=== PATIENT | female | born 1995 | race American Indian/Alaskan Native ===

== ENCOUNTER 2017-09-13 19:33 | Emergency (ER) | payer MEDICAID, OTHER ==
[2017-09-13 19:39] VITALS: BP 137/77
--- NOTE | 2017-09-13 21:20 | EDM.PDOC ---
ED HPI GENERAL MEDICAL PROBLEM - General Chief Complaint: Lower Extremity Injury/Pain Stated Complaint: KNEE PAIN- FELL ON ICE [id number] Time Seen by Provider: 09/13/17 21:05 Source of Information: Reports: Patient History Limitations: Reports: No Limitations - History of Present Illness INITIAL COMMENTS - FREE TEXT/NARRATIVE: This 21 yo female patient reports to the ED with left knee pain. The patient reports she fell yesterday on her left knee. The patient reports increased swelling and stiffness over the past 24 hours. Onset Date: 09/12/17 Duration: Constant Location: Reports: Lower Extremity, Left (knee) Quality: Reports: Ache, Dull Severity: Moderate Improves with: Reports: Rest Worsens with: Reports: Movement Context: Reports: Trauma (GLF) Associated Symptoms: Reports: No Other Symptoms Left Knee Pain Score (Numeric/FACES): 7 - Related Data Allergies Allergy/AdvReac Type Severity Reaction Status Date / Time No Known Allergies Allergy Verified 09/13/17 19:39 Home Meds: Home Meds . [No Known Home Meds] 09/13/17 [History] Past Medical History - Past Health History Medical/Surgical History: Denies Medical/Surgical History Social & Family History - Tobacco Use Smoking Status *Q: Never Smoker Second Hand Smoke Exposure: No - Alcohol Use Days Per Week of Alcohol Use: 0 Number of Drinks Per Day: 7 Total Drinks Per Week: 0 - Recreational Drug Use Recreational Drug Use: No Review of Systems - Review of Systems Review Of Systems: ROS reveals no pertinent complaints other than HPI. ED EXAM, GENERAL - Physical Exam Exam: See Below Exam Limited By: No Limitations General Appearance: Alert, WD/WN, Moderate Distress Eye Exam: Bilateral Eye: EOMI, Normal Inspection, PERRL Ears: Normal External Exam, Normal Canal, Hearing Grossly Normal, Normal TMs Nose: Normal Inspection, Normal Mucosa, No Blood Throat/Mouth: Normal Inspection, Normal Lips, Normal Teeth, Normal Gums, Normal Oropharynx, Normal Voice, No Airway Compromise Head: Atraumatic, Normocephalic Neck: Normal Inspection, Supple, Non-Tender, Full Range of Motion Respiratory/Chest: No Respiratory Distress, Lungs Clear Cardiovascular: Normal Peripheral Pulses, Regular Rate, Rhythm (Female) Exam: Deferred Rectal (Female) Exam: Deferred Extremities: Other (left knee abrasion and contusions. Tendons demonstrate no excessive laxity (ACL, PCL, MCL or LCL)) Neurological: Alert, Oriented, CN II-XII Intact, Normal Cognition, Normal Gait, Normal Reflexes, No Motor/Sensory Deficits Psychiatric: Normal Affect, Normal Mood Skin Exam: Warm, Dry, Intact, No Rash, Wound/Incision (contusion and abrasion to left knee) Lymphatic: No Adenopathy Course - Vital Signs Last Recorded V/S: Last Vital Signs Temp 35.8 C 09/13/17 19:36 Pulse 76 09/13/17 19:36 Resp 18 09/13/17 19:36 BP 137/77 09/13/17 19:36 Pulse Ox 100 09/13/17 19:36 - Orders/Labs/Meds Orders: Active Orders 24 hr Category Date Time Status DME for Discharge [COMM] Urgent Oth 09/13/17 21:20 Ordered Labs: Laboratory Tests 09/13/17 Range/Units 19:45 Urine HCG, Qual Negative Departure - Departure Time of Disposition: 21:17 Disposition: Home, Self-Care 01 Condition: Fair Clinical Impression: Contusion of left knee Qualifiers: Encounter type: initial encounter Qualified Code(s): S80.02XA - Contusion of left knee, initial encounter - Discharge Information Instructions: Contusion, [id number] Forms: ED Department Discharge Care Plan Goals: The patient was advised of the examination and x-ray results during the visit. An DARRYL wrap was placed to help reduce the swelling in her left knee. The patient was encouraged to rest, ice and elevate her left knee over the next 24- 48 hours. If the patient has any additional symptoms or concerns, the patient should follow-up with her primary care facility or return to the emergency department. - My Orders Last 24 Hours: My Active Orders 09/13/17 21:20 DME for Discharge [COMM] Urgent - Assessment/Plan Last 24 Hours: My Active Orders 09/13/17 21:20 DME for Discharge [COMM] Urgent
== END 2017-09-13 21:21 | disposition home or self-care (01) ==
LOC: DL.ED 19:33
DX: S80.02XA Contusion of left knee, initial encounter (principal); W00.0XXA Fall on same level due to ice and snow, initial encounter
CPT/HCPCS: 73564-LT; 81025; 99283

== ENCOUNTER 2022-09-13 09:55 | Inpatient (IN) | payer OTHER ==
[~2022-09-13 09:55] MED LIST: Lactated Ringers 1,000 ML IV ONE
[2022-09-13] MEDS ORDERED: Sodium Chloride 0.9% 10 ML Syringe FLUSH PRN ×2 (10:00→21:27)
[2022-09-13] MEDS ORDERED: Misoprostol 400 MCG (4 X 100 MCG TAB) RECTAL PRN ×2 (10:00→21:27)
[2022-09-13] MEDS ORDERED: Ondansetron 4 MG/2 ML SDV IVPUSH PRN ×3 (10:00→19:54)
[2022-09-13] MEDS ORDERED: Tranexamic Acid 1,000 MG in Sodium Chloride 0.9% 100 ML IV PRN ×2 (10:00→21:27)
[2022-09-13] MEDS ORDERED: Promethazine 25 MG/ML SDV IM PRN ×2 (10:00→19:54)
[2022-09-13] MEDS ORDERED: Carboprost Tromethamine 250 MCG/1 ML Amp IM PRN ×2 (10:00→21:27)
[2022-09-13] MEDS ORDERED: Penicillin G Potassium 5 MILLUNITS in Sodium Chloride 0.9% 100 ML IV ONE (10:00)
[2022-09-13] MEDS ORDERED: Lidocaine 1% 30 ML SDV INJECT PRN (10:00)
[2022-09-13] MEDS ORDERED: Naloxone 2 MG/2 ML Syringe IVPUSH PRN ×2 (10:00→19:54)
[2022-09-13] MEDS ORDERED: Acetaminophen 325 MG Tab PO PRN ×3 (10:00→21:27)
[2022-09-13] MEDS ORDERED: Methylergonovine 0.2 MG/1 ML Amp IM PRN (10:00)
[2022-09-13] MEDS ORDERED: ePHEDrine 50 MG/ML SDV IVPUSH PRN ×2 (10:00→19:54)
[2022-09-13] MEDS ORDERED: Oxytocin/Normal Saline 30 UNIT/500 ML BAG IV SCH ×2 (10:00)
[2022-09-13] MEDS ORDERED: Lactated Ringers 500 ML IV SCH ×4 (10:00→20:00)
[2022-09-13] MEDS: Lactated Ringers 1,000 ML IV SCH ×2 (10:30→19:51)
[2022-09-13] MEDS: Penicillin G Potassium 3 MILLUNITS in Sodium Chloride 0.9% 100 ML IV SCH ×3 (14:10→22:00)
[2022-09-13] MEDS ORDERED: Sodium Chloride 0.9% 100 ML ONE (17:47)
[2022-09-13] MEDS ORDERED: Sodium Bicarbonate 4.2% 2.5 MEQ/5 ML SDV ONE ×2 (18:43→18:50)
[2022-09-13] MEDS ORDERED: Dexmedetomidine 200 MCG/2 ML SDV IT ONE (18:50)
[2022-09-13] MEDS ORDERED: Sodium Chloride 0.9% 20 ML SDV ONE (18:50)
[2022-09-13] MEDS ORDERED: EPINEPHrine 1 MG/ML SDV ONE (18:50)
[2022-09-13] MEDS ORDERED: Morphine PF 10 MG/10 ML SDV IT ONE (18:50)
[2022-09-13] MEDS ORDERED: Simethicone 80 MG Tab.Chew PO PRN (21:27)
[2022-09-13] MEDS ORDERED: Oxytocin 10 Units/1 ML SDV IM PRN (21:27)
[2022-09-13] MEDS ORDERED: Benzocaine/Menthol 20%-0.5% Spray 78 GM Cannister TOP PRN (21:27)
[2022-09-13] MEDS: Ibuprofen 800 MG Tab PO PRN (22:21)
[2022-09-13] MEDS: Docusate Sodium 100 MG Cap PO PRN (22:22)
[2022-09-14] MEDS: Prenatal Multivitamin with Calcium/Folic Acid/Iron Tab PO SCH (08:14)
[2022-09-14] MEDS: Docusate Sodium 100 MG Cap PO PRN (08:15)
[2022-09-14] MEDS: Ibuprofen 800 MG Tab PO PRN (08:17)
[2022-09-15] MEDS: Docusate Sodium 100 MG Cap PO PRN (08:03)
[2022-09-15] MEDS: Ibuprofen 800 MG Tab PO PRN (08:03)
[2022-09-15] MEDS: Prenatal Multivitamin with Calcium/Folic Acid/Iron Tab PO SCH (08:03)
[2022-09-15 09:14] VITALS: BP 133/99; PULSE 113
== END 2022-09-15 10:25 | disposition home or self-care (01) | DRG 807 ==
LOC: DL.OB 09:55 → OBSVTOIN 21:13
PROVIDERS: ADMIT Family Medicine; ATTEND Family Medicine
PROC: 10E0XZZ Delivery of Products of Conception, External Approach (ICD-10-PCS; principal; 2022-09-13)
PROC: 10907ZC Drainage of Amniotic Fluid, Therapeutic from Products of Conception, Via Natural or Artificial Opening (ICD-10-PCS; 2022-09-13)
DX: O13.4 Gestational [pregnancy-induced] hypertension without significant proteinuria, complicating childbirth (principal); Z37.0 Single live birth; Z3A.37 37 weeks gestation of pregnancy; O99.02 Anemia complicating childbirth; D64.9 Anemia, unspecified; O99.824 Streptococcus B carrier state complicating childbirth; Z20.822 Contact with and (suspected) exposure to COVID-19
CPT/HCPCS: 01967; 36415; 59025; 59409; 85027; A9270-GY; J0171; J2270; J2405; J2540; J2590; J3490; J7050; J7120; U0002